=== PATIENT | male | born 1955 | race Caucasian/White ===

== ENCOUNTER 2021-05-17 11:56 | Inpatient (IN) | payer MEDICARE, OTHER ==
[2021-05-17] VITALS (278 sets, daily range): BP systolic 103–127; BP diastolic 60–98; PULSE 51–97; TEMP 97.1–98.3; O2SAT 90–100
[~2021-05-17] VITALS: Ht 175.3 cm; Wt 95.5 kg
[2021-05-17 12:20] LABS: BASO # 0.1 K/mm3 (0.0-0.2); BASO % 0.6 % (0.0-2.0); EOS # 0.1 K/mm3 (0.0-0.7); GRAN # 5.5 K/mm3 (1.4-6.5); GRAN % 50.4 % (42.2-75.2); HEMATOCRIT 46.1 % (42.0-52.0); HEMOGLOBIN 15.5 g/dl (13.5-18.0); LYMPH # 4.4 K/mm3 (1.2-3.4); LYMPH % 40.3 % (20.0-51.0); MEAN CELL VOLUME 91 fl (80.0-100.0); MEAN CORPUSCULAR HEMOGLOBIN 31 pg (27-31); MEAN CORPUSCULAR HGB CONC 34 g/dl (33.0-37.0); MEAN PLATELET VOLUME 10.5 fl (7.4-10.4); MONO # 0.8 K/mm3 (0.1-0.6); MONO % 7.4 % (1.7-9.3); PLATELET COUNT 343 K/mm3 (130-400); RED BLOOD COUNT 5.06 M/mm3 (4.20-5.60); REDCELL DISTRIBUTION WIDTH-CV 13.1 % (11.5-14.5)
[2021-05-17 12:30] LABS: ALANINE AMINOTRANSFERASE 37 U/L (0-55); ALBUMIN 4.4 gm/dL (3.4-4.8); ALKALINE PHOSPHATASE 48 U/L (40-150); ANION GAP 14 mmol/L (7-16); AST,SGOT 22 U/L (5-34); BILIRUBIN,TOTAL 0.6 mg/dL (0.2-1.2); BLOOD UREA NITROGEN 19 mg/dL (8-26); CALCIUM 9.8 mg/dL (8.4-10.2); CARBON DIOXIDE 22 mmol/L (23-31); CHLORIDE 108 mmol/L (98-107); CREATININE, serum 1.26 mg/dL (0.72-1.25); GLUCOSE 160 mg/dL (70-99); POTASSIUM 3.5 mmol/L (3.5-4.5); SODIUM 144 mmol/L (136-145); TOTAL PROTEIN 6.7 gm/dL (6.2-8.1)
[2021-05-17 12:35] LABS: TROPONIN-I < 0.010 ng/mL (0.00-0.033)
[2021-05-17 13:04] LABS: INR 1.1 (0.8-3.0); PROTHROMBIN TIME 11.7 SECONDS (9.7-12.8)
[2021-05-17 13:07] LABS: PARTIAL THROMBOPLASTIN TIME 23.7 SECONDS (26.0-37.0)
[2021-05-17 13:47] LABS: CHOLESTEROL RISK RATIO 4.9
--- NOTE | 2021-05-17 14:00 | NUR ---
Patient came to the ICU after going to pathology lab technician for stent placement. Patient arrived at approx 1320 in stable condition; vital signs were within normal limits and the right femoral insertion site was covered with gauze and tegaderm and was clean, dry, and intact. Angiomax drip was initiated at pathology lab technician and continues to run at 31.9mL. Patient alert and oriented with no complaints of pain at this time.
--- NOTE | 2021-05-17 19:00 | NUR ---
Received report from JONNA Solares. Patient resting quietly. , Kalee is at the bedside. Patient's right groin cath access site is covered with a gauze and tegaderm dressing that is clean, dry, and intact. Site is soft and without bruising or hematoma formation. All pulses palpable; vitals within normal limits. Patient states he is having 1/10, "dull chest tightness," while laying flat. Patient's HOB is raised to 30-45 degrees with some relief in discomfort. He continues to receive nitro drip at 15 mcg/min at this time. Questions encouraged and answered. Bed in lowest position, call light within reach.
[2021-05-18] VITALS (669 sets, daily range): BP systolic 103–109; BP diastolic 59–66; PULSE 46–53; TEMP 98.3–98.7; O2SAT 90–100
[2021-05-18 06:16] LABS: BASO % 0.2 % (0.0-2.0); EOS % 0.2 % (0.0-4.0); GRAN # 9.2 K/mm3 (1.4-6.5); GRAN % 71.6 % (42.2-75.2); HEMATOCRIT 40.7 % (42.0-52.0); HEMOGLOBIN 13.9 g/dl (13.5-18.0); LYMPH # 2.6 K/mm3 (1.2-3.4); LYMPH % 20.3 % (20.0-51.0); MEAN CELL VOLUME 89 fl (80.0-100.0); MEAN CORPUSCULAR HEMOGLOBIN 30 pg (27-31); MEAN CORPUSCULAR HGB CONC 34 g/dl (33.0-37.0); MEAN PLATELET VOLUME 10.5 fl (7.4-10.4); MONO # 0.9 K/mm3 (0.1-0.6); MONO % 7.4 % (1.7-9.3); PLATELET COUNT 253 K/mm3 (130-400); RED BLOOD COUNT 4.57 M/mm3 (4.20-5.60); REDCELL DISTRIBUTION WIDTH-CV 13.2 % (11.5-14.5)
[2021-05-18 06:34] LABS: CALCIUM 8.5 mg/dL (8.4-10.2); CREATININE, serum 0.86 mg/dL (0.72-1.25); POTASSIUM 4.1 mmol/L (3.5-4.5)
[2021-05-18] MEDS ORDERED: LIPITOR 80MG80 MG PO (14:16)
[2021-05-18] MEDS ORDERED: PLAVIX 75MG TAB75 MG PO (14:16)
[2021-05-18] MEDS ORDERED: TOPROL XL 25MG25 MG PO (14:17)
[2021-05-18] MEDS ORDERED: NITROSTAT0.4 MG/TAB SL (14:17)
[2021-05-18] MEDS ORDERED: ASPIRIN E.C. 8181 MG PO (14:17)
--- NOTE | 2021-05-18 16:30 | NUR ---
Patient discharged home today and discharge instructions were reviewed with both the patient and his . Patient was ambulatory and walked out of the unit at approx 1640.
== END 2021-05-18 16:40 | disposition home or self-care (01) | DRG 247 ==
LOC: COL.ER 11:56 → ICU 13:03
PROVIDERS: Nurse Practitioner; Personal Emergency Response Attendant; ADMIT Internal Medicine
PROC: 027034Z Dilation of Coronary Artery, One Artery with Drug-eluting Intraluminal Device, Percutaneous Approach (ICD-10-PCS; principal; 2021-05-17)
PROC: 4A023N7 Measurement of Cardiac Sampling and Pressure, Left Heart, Percutaneous Approach (ICD-10-PCS; 2021-05-17)
PROC: B2111ZZ Fluoroscopy of Multiple Coronary Arteries using Low Osmolar Contrast (ICD-10-PCS; 2021-05-17)
DX: I21.3 ST elevation (STEMI) myocardial infarction of unspecified site (principal); N17.9 Acute kidney failure, unspecified; I25.10 Atherosclerotic heart disease of native coronary artery without angina pectoris; G47.33 Obstructive sleep apnea (adult) (pediatric)
CPT/HCPCS: 99223-AI; 99239; C1725; C1760; C1769; C1874; C1887; C1894; C9600; J0583; J1644; J2405; J7030; Q9967

== ENCOUNTER → 2021-05-21 | Outpatient (CLI) | payer MEDICARE, OTHER ==
[~2021-05-21] MED LIST: ASPIRIN E.C. 8181 MG PO; LIPITOR 80MG80 MG PO; NITROSTAT0.4 MG/TAB SL; PLAVIX 75MG TAB75 MG PO; TOPROL XL 25MG25 MG PO
[2021-05-21 12:44] LABS: ALBUMIN 3.9 gm/dL (3.4-4.8); CALCIUM 9.3 mg/dL (8.4-10.2); CREATININE, serum 1.05 mg/dL (0.72-1.25); POTASSIUM 4.6 mmol/L (3.5-4.5); TOTAL PROTEIN 6.9 gm/dL (6.2-8.1)
[2021-05-21 12:58] LABS: TROPONIN-I 12.737 ng/mL (0.00-0.033)
[2021-05-21 13:54] LABS: HEMATOCRIT 43.4 % (42.0-52.0); HEMOGLOBIN 14.7 g/dl (13.5-18.0); MEAN CELL VOLUME 90 fl (80.0-100.0); MEAN CORPUSCULAR HEMOGLOBIN 30 pg (27-31); MEAN CORPUSCULAR HGB CONC 34 g/dl (33.0-37.0); MEAN PLATELET VOLUME 11.1 fl (7.4-10.4); PLATELET COUNT 264 K/mm3 (130-400); RED BLOOD COUNT 4.83 M/mm3 (4.20-5.60); REDCELL DISTRIBUTION WIDTH-CV 12.9 % (11.5-14.5)
== END ==
LOC: COL.LAB 11:28
DX: I25.10 Atherosclerotic heart disease of native coronary artery without angina pectoris (principal); R07.89 Other chest pain

== ENCOUNTER → 2021-05-22 | Outpatient (CLI) | payer MEDICARE, OTHER ==
--- NOTE | 2021-05-22 08:47 | NUR ---
hEMATOLOGY lAB CALLED WITH CRITICAL VALUE OF tROPONIN 10.212. i CALLED [facility] AND SPOKE TO NICK MARIE RN AND REPORTED THAT VALUE TO HIM. HE ASSURED ME THAT THE TROPONIN LEVEL HAD DECREASED FROM YESTERDAY'S LEVEL OF 12. PHYSICIAN AWARE OF ELEVATED TROPONINS.
== END ==
LOC: COL.RAD 07:27
DX: I25.10 Atherosclerotic heart disease of native coronary artery without angina pectoris (principal); K80.20 Calculus of gallbladder without cholecystitis without obstruction; K76.0 Fatty (change of) liver, not elsewhere classified
CPT/HCPCS: Q9967

== ENCOUNTER 2021-06-25 06:22 | Day surgery (SDC) | payer MEDICARE, OTHER ==
[~2021-06-25] VITALS: Ht 175.3 cm; Wt 87.1 kg
[2021-06-25] VITALS (12 sets, daily range): BP systolic 03–111; BP diastolic 48–85; PULSE 41–54; TEMP 98–98.4
[2021-06-25 07:50] LABS: HEMATOCRIT 37.6 % (42.0-52.0); HEMOGLOBIN 12.6 g/dl (13.5-18.0); MEAN CELL VOLUME 89 fl (80.0-100.0); MEAN CORPUSCULAR HEMOGLOBIN 30 pg (27-31); MEAN CORPUSCULAR HGB CONC 34 g/dl (33.0-37.0); MEAN PLATELET VOLUME 10.5 fl (7.4-10.4); PLATELET COUNT 207 K/mm3 (130-400); RED BLOOD COUNT 4.24 M/mm3 (4.20-5.60); REDCELL DISTRIBUTION WIDTH-CV 13.1 % (11.5-14.5)
[2021-06-25 07:58] LABS: INR 1.2 (0.8-3.0); PROTHROMBIN TIME 13.2 SECONDS (9.7-12.8)
[2021-06-25 08:01] LABS: PARTIAL THROMBOPLASTIN TIME 28.2 SECONDS (26.0-37.0)
[2021-06-25 08:03] LABS: CALCIUM 8.7 mg/dL (8.4-10.2); CREATININE, serum 0.84 mg/dL (0.72-1.25); POTASSIUM 4.1 mmol/L (3.5-4.5)
[2021-06-25] MEDS ORDERED: ASPIRIN 81M81 MG/TA2 PO (08:03)
[2021-06-25] MEDS ORDERED: NITROSTAT0.4 MG/TAB SL (08:04)
[2021-06-25] MEDS ORDERED: TOPROL XL 25MG25 MG PO (08:04)
[2021-06-25] MEDS ORDERED: PLAVIX 75MG TAB75 MG PO (08:05)
[2021-06-25] MEDS ORDERED: LIPITOR 80MG80 MG PO (08:05)
[2021-06-25] MEDS ORDERED: IMDUR 30MG30 MG/TAB PO (08:05)
--- NOTE | 2021-06-25 09:15 | NUR ---
Pt to procedure.
--- NOTE | 2021-06-25 09:31 | NUR ---
PATIENT ALERT AND ORIENTED, DENIES CHEST PAIN. VERBALIZES UNDERSTANDING PROCEDURE. NO REPORTS OF CHEST PAIN. FAMILY IN WAITING ROOM. PLEASE SEE MERGE FOR SPECIFIC [facility] [employer] [facility] DETAILS INCLUDING MEDICATION ADMINISTRATION WELL HEMODYNAMIC MONITORING.
--- NOTE | 2021-06-25 10:48 | NUR ---
Report received pt to be admitted,will not return to [facility].
--- NOTE | 2021-06-25 11:29 | NUR ---
Patient arrived from slab off mill tender at this time, he is alert/oriented, vital signs stable, patient does run bradycardic at baseline and is asymptomatic, he denies pain or discomfort, right radial compression band in place with no signs of bleeding or oozing, present at bedside
--- NOTE | 2021-06-25 12:44 | NUR ---
Patient continues to do well post heart cath, vital signs tsable, denies pain, no bleeding from TR band , sitting up eating lunch, denies needs
--- NOTE | 2021-06-25 18:12 | NUR ---
Patient doing well post hearet cath, TR band deflated/ no signs of bleeding, Vital signs stable, no pain, he is eating and drinking without issues, he is abmulatory and walking in the hallway with his
[2021-06-26] VITALS: BP 108/52; PULSE 54; TEMP 98.1
[2021-06-26 00:33] VITALS: BP 108/52; PULSE 54; TEMP 98.1
[2021-06-26 04:00] VITALS: BP 108/52; PULSE 54; TEMP 98.1
[2021-06-26 04:38] VITALS: BP 111/58; PULSE 84; TEMP 97.8
--- NOTE | 2021-06-26 04:42 | NUR ---
PATIENT RESTED QUIETLY IN BED THROUGHOUT THE NIGHT. NO NEW ISSUES NOTED OR REPORTED BY PATIENT. RIGHT RADIAL BAND AID CLEAN, DRY, AND INTACT.
[2021-06-26 06:44] LABS: CALCIUM 8.7 mg/dL (8.4-10.2); CREATININE, serum 0.81 mg/dL (0.72-1.25)
[2021-06-26 06:50] LABS: BASO % 0.3 % (0.0-2.0); EOS # 0.1 K/mm3 (0.0-0.7); GRAN # 4.1 K/mm3 (1.4-6.5); GRAN % 67.8 % (42.2-75.2); HEMATOCRIT 40.7 % (42.0-52.0); HEMOGLOBIN 13.7 g/dl (13.5-18.0); LYMPH # 1.1 K/mm3 (1.2-3.4); LYMPH % 17.8 % (20.0-51.0); MEAN CELL VOLUME 90 fl (80.0-100.0); MEAN CORPUSCULAR HEMOGLOBIN 30 pg (27-31); MEAN CORPUSCULAR HGB CONC 34 g/dl (33.0-37.0); MONO # 0.7 K/mm3 (0.1-0.6); MONO % 11.9 % (1.7-9.3); PLATELET COUNT 182 K/mm3 (130-400); RED BLOOD COUNT 4.51 M/mm3 (4.20-5.60); REDCELL DISTRIBUTION WIDTH-CV 13.1 % (11.5-14.5)
[2021-06-26 07:39] VITALS: BP 119/48; PULSE 56; TEMP 97.8
--- NOTE | 2021-06-26 09:48 | NUR ---
Initial visit; Patient thanked [employer] for looking in on him, offering Elin, encouragement and prayer and keeping him in [employer] prayers.
--- NOTE | 2021-06-26 10:39 | NUR ---
[facility] met with the patient and his , Kalee (ph#[phone]), to discuss discharge plan. The patient lives in [place] with his . He reports independence with ADLs and does not have any DME. The patient's PCP is Dr. Chris Glass and he receives his medications from [facility]. He reports no difficulties obtaining his meds. The patient does not have a DPOA-HC in EMR, but he states that he does have one completed and that it designates his . The patient plans on returning home with his upon discharge. No additional needs at this time. *Discharge plan: home with *
[2021-06-26] MEDS ORDERED: IMDUR 30MG30 MG/TAB PO (10:56)
== END 2021-06-26 11:14 | disposition home or self-care (01) ==
LOC: COL.CAR 06:22 → MEDICAL 12:24 → COL.CAR 06-26 11:14
PROVIDERS: Internal Medicine Cardiovascular Disease
DX: I25.10 Atherosclerotic heart disease of native coronary artery without angina pectoris (principal); I21.9 Acute myocardial infarction, unspecified; I31.3 Pericardial effusion (noninflammatory); Z95.5 Presence of coronary angioplasty implant and graft
CPT/HCPCS: OP; C1725; C1769; C1874; C1887; C9600; J0583; J1644; J2250; J3010

== ENCOUNTER 2021-07-26 10:34 | Outpatient (RCR) | payer MEDICARE, OTHER ==
[~2021-07-26 10:34] MED LIST changes: +ASPIRIN 81M81 MG/TA2 PO; +IMDUR 30MG30 MG/TAB PO
== END 2021-07-27 | disposition home or self-care (01) ==
LOC: COL.CR
DX: Z48.812 Encounter for surgical aftercare following surgery on the circulatory system (principal); Z95.5 Presence of coronary angioplasty implant and graft

== ENCOUNTER 2021-08-07 11:31 | Outpatient (RCR) | payer MEDICARE, OTHER | END 2021-08-19 11:57 | disposition home or self-care (01) | LOC: COL.CR 11:31 | DX: Z48.812 Encounter for surgical aftercare following surgery on the circulatory system (principal); Z95.5 Presence of coronary angioplasty implant and graft ==